=== PATIENT | female | born 1950 | race Caucasian/White ===

== ENCOUNTER 2018-12-10 06:49 | Day surgery (SDC) | payer OTHER ==
[~2018-12-10] VITALS: Ht 157.5 cm; Wt 80.7 kg
[~2018-12-10 06:49] MED LIST: ATEN100T PO; HYDR25TA6 PO; LISI40TA3 PO; OMEP20CA16 PO; VENL75CA89 PO
[2018-12-10 07:44] VITALS: Ht 157.5 cm; Wt 80.7 kg
[2018-12-10] MEDS ORDERED: ZOC10 PO (07:53)
[2018-12-10] MEDS ORDERED: METO-336 PO (07:53)
[2018-12-10 08:06] VITALS: BP 178/77; PULSE 67; RESP 20
--- NOTE | 2018-12-10 08:20 | PREAC ---
Date/Time of Note Date/Time of Note DATE: 12/10/18 TIME: 08:18 Anesthesia Eval and Record Evaluation Time Pre-Procedure Interview DATE: 12/10/18 TIME: 08:18 Age 67 Sex female NPO: 8 hrs Preoperative diagnosis GERD Planned procedure EGD, Colonoscopy Past Medical History Past Medical History: Includes Cardio: HTN, Dyslipidemia GI: Obesity Surgery & Anesthesia Issues No known issue Meds Anticoagulation: No Beta Sonal within 24 hr: Yes Reported Medications Simvastatin (Simvastatin) 10 Mg Tablet, 10 MG PO DAILY, #30 TAB 12/10/18 Metoprolol Succinate* (Toprol XL*) 100 Mg Tab.sr.24h, 100 MG PO DAILY, #30 TAB 12/10/18 Venlafaxine Hcl* (Venlafaxine Hcl ER*) 75 Mg Cap.er.24h, 75 MG PO DAILY, CAP 08/21/15 Lisinopril* (Lisinopril*) 40 Mg Tablet, 40 MG PO DAILY, #30 TAB 08/21/15 Hydrochlorothiazide (Hydrochlorothiazide) 25 Mg Tablet, 25 MG PO DAILY, #30 TAB 08/21/15 Discontinued Reported Medications Omeprazole* (Omeprazole*) 20 Mg Capsule.dr, 20 MG PO DAILY, #30 CAP 08/21/15 Atenolol* (Atenolol*) 100 Mg Tablet, 100 MG PO DAILY, #30 TAB 08/21/15 Meds reviewed: Yes Allergies Coded Allergies: acetaminophen (Verified Allergy, Intermediate, 08/21/15) rash codeine (Verified Allergy, Intermediate, 08/21/15) rash Allergies Reviewed: Yes Labs/Studies Labs Reviewed: Other (NA) test: N/A Pre-procedure Exam Last vitals Vital Signs Date Temp Pulse Resp B/P (MAP) Pulse Ox O2 O2 Flow FiO2 Time Delivery Rate 12/10/18 98.3 67 20 178/77 98 Room Air 08:06 (110) Airway: Adequate thyromental dist Mallampati: Mallampati I Teeth: Normal Lung: Normal Heart: Normal ASA Physical Status ASA physical status: 2 Emergency: None Planned Anesthetic General/MAC: MAC Pre-operative Attestations Prior to commencing anesthesia and surgery, the patient was re-evaluated, there was verification of: *The patient's identity *The results of appropriate recent lab work and preoperative vital signs *The above evaluation not changing prior to induction *Anesthetic plan, risk benefits, alternative and complications discussed with patient/family; questions answered; patient/family understands, accepts and wishes to proceed. ALEKSANDER MASSEY [employer] STUDY ANALYST Dec 10, 2018 08:20
[2018-12-10] MEDS ORDERED: PROPOFOL 40 ML ONE (08:21)
[2018-12-10] MEDS ORDERED: LIDOCAINE 2% (SDV) 5 ML INJ ONE (08:21)
[2018-12-10 08:28] VITALS: BP 208/88
--- NOTE | 2018-12-10 09:03 | PAC ---
Date/Time of Note Date/Time of Note DATE: 12/10/18 TIME: 09:03 Post-Anesthesia Notes Post-Anesthesia Note Last documented vital signs 100/65, 62, 14, 99% Vital Signs Date Temp Pulse Resp B/P (MAP) Pulse Ox O2 O2 Flow FiO2 Time Delivery Rate 12/10/18 98.3 67 20 178/77 98 Room Air 08:06 (110) Activity: WNL Respiratory function: WNL Cardiovascular function: WNL Mental status: Baseline Pain reasonably controlled: Yes Hydration appropriate: Yes Nausea/Vomiting absent: Yes ALEKSANDER MASSEY CRNA Dec 10, 2018 09:03
[2018-12-10 09:22] VITALS: BP 126/61; PULSE 60; RESP 17
[2018-12-10] MEDS ORDERED: LABETALOL HCL 20MG INJ IV PRN (09:30)
[2018-12-10] MEDS ORDERED: ONDANSETRON 4 MG INJ IV PRN (09:30)
[2018-12-10] MEDS ORDERED: FENTAnyl 50 MCG/ML VIAL IV PRN ×2 (09:30)
== END 2018-12-10 14:13 | disposition home or self-care (01) ==
LOC: GIL 06:49
PROVIDERS: ATTEND Internal Medicine Gastroenterology
DX: Z12.11 Encounter for screening for malignant neoplasm of colon (principal); K29.50 Unspecified chronic gastritis without bleeding; I10 Essential (primary) hypertension; E78.5 Hyperlipidemia, unspecified
CPT/HCPCS: 88305; 88312